=== PATIENT | male | born 1995 | race Two or more races ===

== ENCOUNTER 2021-08-15 13:53 | Emergency (ER) | payer OTHER ==
[~2021-08-15] VITALS: Ht 170.2 cm; Wt 72.6 kg
[2021-08-15 14:19] VITALS: BP 147/76
--- NOTE | 2021-08-15 14:21 | NUR ---
THROAT KAMINSKI SINCE WEDNESDAY PER PT. AMBULATORY, [id number]. SEEN AND EXAMINED BY DR KAM
[2021-08-15] MEDS ORDERED: KETOROLAC TROMETHAMINE INJ 30 MG/ML VIAL IM ONE (15:00)
[2021-08-15] MEDS ORDERED: DEXAMETHASONE SOD PHOSPHATE 10 MG/ML VIAL IM ONE (15:00)
[2021-08-15] MEDS ORDERED: DEXAMETHASONE SOD PHOSPHATE 10 MG/ML VIAL ONE (15:12)
[2021-08-15] MEDS ORDERED: KETOROLAC TROMETHAMINE 15 MG/ML VIAL ONE (15:12)
[2021-08-15] MEDS ORDERED: AMOX-430 PO (15:17)
[2021-08-15] MEDS ORDERED: IBUP-1955 PO (15:17)
--- NOTE | 2021-08-15 15:26 | NUR ---
Patient discharged to home in stable condition. Written and verbal after care instructions given. Patient verbalizes understanding of instruction.
== END 2021-08-15 15:26 | disposition home or self-care (01) ==
LOC: ER 14:02
DX: J02.0 Streptococcal pharyngitis (principal); Z20.822 Contact with and (suspected) exposure to COVID-19; R03.0 Elevated blood-pressure reading, without diagnosis of hypertension
CPT/HCPCS: 87070; 87880; 96372 ×2; 99284; C9803; J1100; J1885; U0003; 86403-TC

== ENCOUNTER 2022-03-12 12:03 | Emergency (ER) | payer BC, OTHER ==
[~2022-03-12] VITALS: Ht 170.2 cm; Wt 74.8 kg
[~2022-03-12 12:03] MED LIST: AMOX-430 PO; IBUP-1955 PO
[2022-03-12 12:23] VITALS: BP 134/68
[2022-03-12] MEDS ORDERED: KETOROLAC TROMETHAMINE INJ 60 MG/2 ML VIAL IM ONE (13:30)
[2022-03-12] MEDS ORDERED: DEXAMETHASONE SOD PHOSPHATE 4 MG/ML VIAL IM ONE (13:30)
[2022-03-12] MEDS ORDERED: DEXAMETHASONE SOD PHOSPHATE 10 MG/ML VIAL ONE (13:45)
[2022-03-12] MEDS ORDERED: KETOROLAC TROMETHAMINE 15 MG/ML VIAL ONE (13:45)
--- NOTE | 2022-03-12 13:54 | NUR ---
RAPID FLU, RAPID COVID, AND RAPID STREP SWABS OBTAINED AND SENT TO LAB
--- NOTE | 2022-03-12 13:55 | NUR ---
TORADOL AND DECADRON IM GIVEN INDICATED, ILIANA WELL
[2022-03-12] MEDS ORDERED: AMOX875T2 PO (14:30)
--- NOTE | 2022-03-12 14:47 | NUR ---
Patient discharged to home in stable condition. Written and verbal after care instructions given. Patient verbalizes understanding of instruction.
== END 2022-03-12 14:47 | disposition home or self-care (01) ==
LOC: ER 12:14
DX: J02.9 Acute pharyngitis, unspecified (principal); Z20.822 Contact with and (suspected) exposure to COVID-19
CPT/HCPCS: 99284; 87426; 96372 ×2; 87804; 87880; J1100; J1885; C9803; 86403-TC